=== PATIENT | male | born 1995 | race Caucasian/White ===

== ENCOUNTER → 2017-07-07 | Outpatient (CLI) | payer OTHER ==
--- NOTE | 2017-07-07 18:13 | Diagnostic Imaging Report ---
PROCEDURE: MRI right joint lower extremity without contrast. TECHNIQUE: Multiplanar, multisequence non contrast-enhanced MRI of the right lower extremity was accomplished. INDICATION: Right knee pain, injury playing volleyball. Evaluate for lateral meniscus tear. COMPARISON: None. FINDINGS: There is mild edema in the peripheral aspect of the lateral femoral condyle, and mild bone marrow edema at the medial aspect of the patella. No fracture line is seen. A minimal right knee joint effusion is present. The patella is tilted laterally. There is mild heterogeneity and surface irregularity of the patellofemoral articular cartilage. The articular cartilage in the medial and lateral compartments appears intact. The medial and lateral menisci are intact. The anterior and posterior cruciate ligaments appear intact. The medial collateral ligament and the lateral collateral ligamentous complex are intact. The extensor mechanism is intact. There is mild irregularity at the patellar attachment of the medial retinaculum; however, the retinaculum appears grossly intact. The lateral retinaculum is intact. No soft tissue fluid collections are seen. The musculature is unremarkable. IMPRESSION: 1. Mild bone marrow edema at the lateral femur and medial patella, suggestive of transient lateral patellar dislocation. 2. No discrete ligamentous or meniscal tear is seen. 3. Minimal right knee joint effusion. Dictated by: Dictated on workstation # [id number]
== END ==
LOC: RAD 16:36
PROVIDERS: ATTEND Nurse Practitioner
DX: S83.289A Other tear of lateral meniscus, current injury, unspecified knee, initial encounter (principal); M25.461 Effusion, right knee; Y93.68 Activity, volleyball (beach) (court)
CPT/HCPCS: 73721